=== PATIENT | male | born 1965 | race Caucasian/White ===

== ENCOUNTER 2017-06-15 17:00 | Inpatient (IN) | payer OTHER ==
[~2017-06-15] VITALS: Ht 182.9 cm; Wt 77.6 kg
--- NOTE | ~2017-06-15 | PN ---
Unit #: [id number] #: [id number] Patient: AIDA CABALLERO [id number] [facility] [address] [place] [address] [id number] MR#: [id number] NAME: AIDA CABALLERO. ROOM: P207 Age: 51 Sex: M Admission Date: 06/15/2017 : 1965 Attending Physician: Amanda Ghotra M.D. Admitting Physician: Amanda Ghotra M.D. Primary Care Physician: Shorty Doctor Not In System [facility] PROGRESS NOTES DATE 06/18/2017 DISCUSSION Mr. Caballero is a 51-year-old white male with substance abuse and mood disorder who was seen today and chart was reviewed and case was discussed with the staff. He was seen to be anxious, withdrawn, unkempt, disheveled and rather seclusive to himself with blunted affect, minimal interaction. Meanwhile, he has been taking the medications and tolerating them side effects. MENTAL STATUS EXAMINATION Middle-aged white male who was casually dressed with marginal personal hygiene and appears to be in no acute distress or discomfort. He was awake and alert with impaired attention and concentration. His mood was anxious with congruent affect. His speech is slow and restricted in content. He denies any suicidal or homicidal ideation and also denies any auditory or visual hallucinations. His insight and judgement remains slightly impaired. TREATMENT PLAN 1. Will continue on his current medications and treatment protocol. Will monitor his response to the medications and make further adjustments as needed. 2. Will continue to follow up. Dictated by... Karthik Armstrong/aramis TD: 06/18/2017 22:50 JOB #: [id number] Unit #: [id number] #: [id number] Patient: AIDA CABALLERO [facility] PROGRESS NOTES Page 1 of 1 X Amanda Ghotra MD PROGRESS NOTE
--- NOTE | ~2017-06-15 | DS ---
Unit #: [id number] #: [id number] Patient: [facility]IDA CABALLERO [id number] [facility] [address] [place] [address] [id number] MR#: [id number] NAME: AIDA CABALELRO. ROOM: [facility] Age: 51 Sex: M Admission Date: 06/15/2017 : 1965 Discharge Date: 06/19/2017 Attending Physician: Amanda Ghotra M.D. Primary Care Physician: Generic Doctor Not In System DISCHARGE SUMMARY IDENTIFYING DATA Mr. Caballero is a 51-year-old single white male, who is a resident of [place], [place], and was self-referred to the hospital on a voluntary basis. DISCHARGE DIAGNOSES Psychiatric: Alcohol dependence, moderate in acute withdrawals; alcohol-induced mood disorder. Medical: None. Stressors: Moderate psychosocial stressors. HISTORY OF PRESENT ILLNESS Please see initial psychiatric evaluation for details. PAST PSYCHIATRIC HISTORY Please see initial psychiatric evaluation for details. PAST MEDICAL HISTORY Please see initial psychiatric evaluation for details. HOSPITAL COURSE The patient was admitted to the adult chemical dependency and psychiatric unit at [facility] and was oriented to the hospital environment. Routine p.r.n. medications were initiated, and he was started back on his home medications and detox protocol was initiated and he was closely monitored. He was taking the medications regularly and was tolerating them fairly well and was able to show a decent therapeutic response with improvement in depression and anxiety, and was denying any suicidal ideations, intent, or plan and was wanting to go home and was willing to continue treatment on an outpatient basis and as such, it was decided that he will be discharged home and will continue treatment on an outpatient basis. DISCHARGE MEDICATIONS None. DISCHARGE CONDITION Stable. PROGNOSIS Fair. Unit #: [id number] #: [id number] Patient: AIDA CABALLERO Dictated by... Karthik Armstrong/wendy TD: 06/19/2017 07:11 JOB #: [id number] DISCHARGE SUMMARY Page 1 of 1 X Amanda Ghotra MD X DISCHARGE SUMMARY
--- NOTE | ~2017-06-15 | CO ---
Unit #: [id number] #: [id number] Patient: AIDA LOPEZ [id number] [facility] [address] [place] [address] [id number] MR#: [id number] NAME: AIDA LOPEZ. ROOM: [facility] Age: 51 Sex: M Admission Date: 06/15/2017 : 1965 Attending Physician: Amanda Ghotra M.D. Primary Care Physician: Shorty Doctor Not In System Consultation Date: 06/16/2017 CONSULTATION REPORT REASON FOR ADMISSION Evaluation of rash in abdomen. HISTORY OF PRESENT ILLNESS The patient is a 51-year-old male [facility] secondary to acute mental illness. Please see H and P for complete details. On skin exam, on initial evaluation the patient was noted to have numerous erythematous patchy lesions which are throughout his chest wall as well as abdomen. He states that he slept outside the night before admission and he was unsure if he got bit by any form of insect. He says that they are somewhat itchy to him, but otherwise did not bother him. PHYSICAL EXAMINATION SKIN: There are numerous lesions present approximately 1 to 2 cm in diameter throughout and present on his anterior chest wall as well as his anterior abdomen. There is no purulent drainage. No abscess formation is noted. There are pruritic cool which are noted. ASSESSMENT Dermatitis, likely secondary to bug bites either mosquitos and/or possible other insect. PLAN P.r.n. symptom management for pruritic nature including Vistaril, Benadryl, and/or others; otherwise, no other acute intervention is needed at the present time. Thank you Dr. Eldridge for this consultation. Dictated by... Karthik KleinN/wendy TD: 06/16/2017 19:05 JOB #: [id number] Unit #: [id number] #: [id number] Patient: AIDA LOPEZ CONSULTATION REPORT Page 1 of 1 X Lilly Torre MD CONSULTATION REPORT
--- NOTE | ~2017-06-15 | HP ---
Unit #: [id number] #: [id number] Patient: AIDA LOPEZ [id number] [place] [address] [id number] I MR#: [id number] NAME: AIDA LOPEZ. ROOM: P207 Age: 51 Sex: M Admission Date: 06/15/2017 : 1965 Attending Physician: Amanda Ghotra M.D. Admitting Physician: Amanda Ghotra M.D. Primary Care Physician: Generic Doctor Not In System HISTORY AND PHYSICAL REASON FOR ADMISSION Acute psychiatric inpatient admission. HISTORY OF PRESENT ILLNESS The patient is a 51-year-old male admitted secondary to alcohol dependence and/or abuse. He also suffers from depression, now he states that he wishes for detox services. PAST MEDICAL HISTORY None. CURRENT HOME MEDICATIONS None. SOCIAL HISTORY Positive tobacco and alcohol. FAMILY HISTORY Father and brother are alcoholics. REVIEW OF SYSTEMS Positive for diarrhea, depressed mood, irritability, decreased appetite, disheveled look noted, muscle cramps also; otherwise, as per HPI. PHYSICAL EXAMINATION VITAL SIGNS: Temperature 98.3, pulse 79, respiratory rate 20, and blood pressure 124/76. GENERAL APPEARANCE: The patient is a 51-year-old male, in no acute distress. HEAD: Atraumatic. Normocephalic. EYES: Bilateral extraocular muscles are normal. Pupils equal, reactive to light and accommodation. Sclerae are normal. No jaundice. NECK: Neck is supple. No neck rigidity. No thyromegaly. No carotid bruit. No JVD. Oral mucosa is moist. CHEST: Bilateral vesicular breathing. Clear to auscultation. No basilar rales. CARDIOVASCULAR: S1 and S2 normal. No murmur, no gallop, no rub. ABDOMEN: Soft, nontender. No organomegaly. Bowel sounds are normal. No hernia, no masses, no rebound, no guarding. EXTREMITIES: No pitting edema. No calf tenderness. Extremity pulses, including dorsalis pedis, have good volume. BACK: Normal spine curvature. No spine tenderness. No costovertebral angle tenderness. Unit #: [id number] #: [id number] Patient: AIDA LOPEZ PARISH NURSE: Cranial nerves normal bilaterally. Motor function bilaterally symmetric and normal. Sensory system normal. SKIN: Warm and dry. INITAL IMPRESSION 1. Acute psychiatric inpatient admission. 2. Alcohol dependence/abuse. 3. Major depressive disorder. PLAN As per psychiatrist. Medical condition stable. Medical prognosis fair. There are no medical contraindications to the patient participating in activities while here at [facility]. Dictated by... Lilly Torre M.D. DORIAN/wendy TD: 06/16/2017 19:11 JOB #: [id number] HISTORY AND PHYSICAL Page 1 of 1 X Lilly Torre MD X HISTORY AND PHYSICAL
--- NOTE | ~2017-06-15 | PA ---
Unit #: [id number] #: [id number] Patient: AIDA CABALLERO [id number] [facility] [address] [place] [address] [id number] MR#: [id number] NAME: AIDA CABALLERO. ROOM: P207 Age: 51 Sex: M Admission Date: 06/15/2017 : 1965 Date of Assessment: Attending Physician: Amanda Ghotra M.D. Admitting Physician: Amanda Ghotra M.D. PSYCHIATRIC ASSESSMENT DATE OF SERVICE 06/16/2017. IDENTIFYING DATA Mr. Caballero is a 51-year-old single white male, who is a resident of [place], [place], and was self-referred to the hospital on a voluntary basis. CHIEF COMPLAINT "I'm here for detox services." HISTORY OF PRESENT ILLNESS Mr. Caballero is a 51-year-old white male, who presented to the hospital, stating that he has been drinking a fifth a day for the past 2 months and that he drinks vodka and that he has had a little less today and that he only has consumed a pint and that he has a friend, who brought him to the hospital to detox and states that he is suffering from depression and he quit his job due to his drinking. He states that he cannot stop drinking on his own. He presented with blood alcohol level of 0.214. The patient stated that he is ready to get help and that he has been living alone and does not have any support system. He also reports increasing depression, anxiety, and stated his mother is very ill and has a heart failure and does not have long for her to live in this world and that he has had thoughts of suicide, but does not have a plan. On evaluation by me, the patient was seen to be anxious, withdrawn, unkempt, disheveled, significant body odor, shaking, tremulous, isolative, seclusive to himself with blunted affect, minimal interaction, and reports not feeling very well. 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 He reports that he started drinking at the age of 15 and currently, has been drinking a fifth a day on regular basis. PAST PSYCHIATRIC HISTORY The patient has had history of chemical dependency [facility]. Review of the medical records indicated that currently he is not active in any treatment program, is not seeing a psychiatrist, and is not taking any psychotropic medications. PAST MEDICAL HISTORY Unit #: [id number] #: [id number] Patient: AIDA CABALLERO The patient's medical history is insignificant. ALLERGIES No known medication allergies. CURRENT MEDICATIONS None. PERSONAL AND SOCIAL HISTORY This is a 51-year-old white male, who reports that he is single, unemployed, lives alone, and has poor social support system. MENTAL STATUS EXAMINATION Middle-aged white male, who was casually dressed with fair personal hygiene, appears to be in no acute distress or discomfort. He was awake and alert on interaction with intact orientation. His mood was anxious and depressed with a congruent affect. His speech was slow and restricted in content. His thought processes were disorganized with some looseness of associations and flight of ideas. His insight and judgment remain significantly impaired. DIAGNOSTIC IMPRESSION Psychiatric: Alcohol dependence, moderate and acute withdrawals; alcohol-induced mood disorder. Medical: None. Stressors: Moderate psychosocial stressors. TREATMENT PLAN 1. The patient has presented with history of mood disorder, and has been decompensating and will need inpatient hospitalization for safety and stabilization. We will start him back on his home medications. We will adjust the medications and monitor response. 2. Supportive therapy was provided to the patient. 3. Safe, structured, and nourishing environment will be reported. ESTIMATED LENGTH OF STAY 4 to 5 days. ABILITY TO HELP SELF Limited. WILLINGNESS TO HELP SELF The patient appears to be willing to help self. STRENGTHS 1. Communicative. 2. Cooperative. PROBLEMS 1. Chronic dysphoric symptoms. 2. Poor social support system. DISCHARGE CRITERIA This will be contingent upon the patient's ability to go through detox without having any significant withdrawal symptoms as well as his ability to stay safe to himself, particularly after discharge from the hospital. Dictated by... Unit #: [id number] #: [id number] Patient: AIDA CABALLERO Karthik Armstrong/wendy TD: 06/16/2017 11:03 JOB #: [id number] PSYCHIATRIC ASSESSMENT Page 1 of 1 X Amanda Ghotra MD PSYCHIATRIC ASSESSMENT
--- NOTE | ~2017-06-15 | PN ---
Unit #: [id number] #: [id number] Patient: AIDA CABALLERO [id number] [facility] [address] [place] [address] [id number] MR#: [id number] NAME: AIDA CABALLERO. ROOM: P207 Age: 51 Sex: M Admission Date: 06/15/2017 : 1965 Attending Physician: Amanda Ghotra M.D. Admitting Physician: Amanda Ghotra M.D. Primary Care Physician: Generic Doctor Not In System [facility] PROGRESS NOTES DATE June 17, 2017 DISCUSSION Mr. Caballero is a 51-year-old white male, with alcohol dependence, who was seen today and chart was reviewed and the case was discussed with the staff. He was seen to be anxious, withdrawn, and in acute distress and discomfort, he had significant body odor, and had been able to function and performed activities of daily living, where he would take care of his personal hygiene. Meanwhile, he has been taking the medications and tolerating them fairly well with no reported side effects. MENTAL STATUS EXAMINATION Middle-aged white male, who was casually dressed with marginal personal hygiene and appears to be in slight distress and discomfort. He was awake and alert with impaired attention and concentration. His mood is anxious with a congruent affect. His speech is slow and restricted in content. His thought processes are disorganized with some looseness of associations and paranoid ideations. His insight and judgment remain significantly impaired. TREATMENT PLAN 1. We will continue him on his current medications and treatment protocol, and will monitor his response to the medications, and make further adjustments as needed. 2. We will continue to followup. Dictated by... Karthik Armstrong/sabiha TD: 06/18/2017 08:34 JOB #: [id number] Unit #: [id number] #: [id number] Patient: AIDA CABALLERO [facility] PROGRESS NOTES Page 1 of 1 X Amanda Ghotra MD PROGRESS NOTE
[2017-06-16 11:00] LABS: EOSINOPHIL# 0.2 X10e3 (0-0.7); EOSINOPHIL% 4.1 % (0.0-7.0); HEMATOCRIT 42.4 % (38.0-50.0); HEMOGLOBIN 14.4 gm/dL (13.0-16.0); LYMPHOCYTE# 1.5 X10e3 (1.0-3.5); LYMPHOCYTE% 29.6 % (17.0-45.0); MEAN CELL VOLUME 96.5 FL (83-96); MEAN CORPUSCULAR HEMOGLOBIN 32.8 PG (28-34); MEAN PLATELET VOLUME 7.6 FL (6.5-11.5); MONOCYTE# 0.7 X10e3 (0-1.0); MONOCYTE% 13.2 % (3.0-12.0); NEUTROPHIL# 2.7 X10e3 (1.5-7.1); NEUTROPHIL% 52.1 % (40-75); PLATELET COUNT 232 X10e3 (140-420); WHITE BLOOD COUNT 5.1 X10e3 (4.0-10.5)
[2017-06-16 11:08] LABS: DIFF IND NO
[2017-06-16 11:09] LABS: URINE APPEARANCE CLEAR; URINE BLOOD NEG (NEG); URINE COLOR DK YELLOW; URINE GLUCOSE NEG (NEG); URINE KETONE TRACE (NEG); URINE LEUKOCYTE ESTERASE NEG (NEG); URINE NITRATE NEG (NEG); URINE PH 5.5 (5-8); URINE PROTEIN NEG (NEG); URINE SPECIFIC GRAVITY 1.028 (1.003-1.035)
[2017-06-16 11:30] LABS: AMPHETAMINE NEG (NEG); BARBITURATES NEG (NEG); BENZODIAZEPINES NEG (NEG); COCAINE NEG (NEG); MARIJUANA NEG (NEG); OPIATES NEG (NEG); TRICYCLIC ANTIDEPRESSANTS NEG (NEG); U METHADONE NEG (NEG)
[2017-06-16 11:34] LABS: URINE BILIRUBIN NEG (NEG)
[2017-06-16 12:18] LABS: BUN/CREATININE RATIO 15.71; CALCIUM SERUM 9.1 mg/dL (8.4-10.2); CREATININE SERUM 0.7 mg/dL (0.6-1.4); GLOM FILT RATE Estimated 110.9 mL/min (>60); POTASSIUM 5.2 mmol/L (3.5-5.1); PROTEIN TOTAL SERUM 6.4 g/dL (6.0-8.3)
== END 2017-06-19 11:15 | DRG 897 ==
LOC: P2S 18:57
PROVIDERS: Psychiatry & Neurology Psychiatry
PROC: HZ2ZZZZ Detoxification Services for Substance Abuse Treatment (ICD-10-PCS; principal; 2017-06-15)
DX: F10.239 Alcohol dependence with withdrawal, unspecified (principal); F10.24 Alcohol dependence with alcohol-induced mood disorder; F32.9 Major depressive disorder, single episode, unspecified; L25.9 Unspecified contact dermatitis, unspecified cause
CPT/HCPCS: 80053; 80307; 81003; 85025; 86592; J1040